=== PATIENT | female | born 1990 | race Caucasian/White ===

== ENCOUNTER → 2023-04-23 | Outpatient (CLI) | payer OTHER | LOC: LAB 09:40 → LAB SHORT 09:40 | DX: N39.0 Urinary tract infection, site not specified (principal) | CPT/HCPCS: 87077; 87086; 87186 ==

== ENCOUNTER → 2023-07-10 | Outpatient (CLI) | payer OTHER ==
[2023-07-11 15:12] LABS: HPV 16 Negative (Negative); HPV 18 Negative (Negative); HPV OTHER HR TYPES Negative (Negative)
== END | disposition home or self-care (01) ==
LOC: LAB SHORT 14:00 → LAB 14:00
PROVIDERS: Obstetrics & Gynecology
DX: Z01.419 Encounter for gynecological examination (general) (routine) without abnormal findings (principal)
CPT/HCPCS: 87624; G0145

== ENCOUNTER 2023-12-18 06:36 | Day surgery (SDC) | payer OTHER ==
[2023-12-18] VITALS (15 sets, daily range): BP systolic 114–135; BP diastolic 71–86
[~2023-12-18] VITALS: Ht 165.1 cm; Wt 74.2 kg
[~2023-12-18 06:36] MED LIST: CeFAZolin Sodium 2,000 MG in NS 100 ML IV SCH; Lactated Ringer's 1,000 ML IV SCH; VENL37.5ER PO
--- NOTE | 2023-12-18 07:20 | NUR ---
Ambulatory in Day Surgery History, Chart, Medications and Allergies reviewed before start of procedure. Pre-Op teaching done. Pt verbalizes understanding.
[2023-12-18] MEDS ORDERED: Lidocaine HCl 2% 20 ML MDV ONE (07:51)
[2023-12-18] MEDS ORDERED: FentaNYL Citrate 50 MCG/ML 5 ML Injection ONE (07:51)
[2023-12-18] MEDS ORDERED: Rocuronium Bromide 10 MG/ML 5ML Injection IV ONE (07:51)
[2023-12-18] MEDS ORDERED: propofoL 20 ML IV ONE (07:51)
[2023-12-18] MEDS ORDERED: Bupivacaine 0.5% HCl 5 MG/ML 30MLVIAL ONE (07:54)
[2023-12-18] MEDS ORDERED: Dexamethasone Sod Phos 10 MG/ML 1ML VIAL ONE (08:19)
[2023-12-18] MEDS ORDERED: Ondansetron HCl 2 MG / ML 2ML Vial ONE (09:09)
[2023-12-18] MEDS ORDERED: Sugammadex Sodium 200 MG/2ML SDV (100 MG/ML) ONE (09:09)
[2023-12-18] MEDS ORDERED: Lactated Ringer's 1,000 ML IV SCH (09:35)
[2023-12-18] MEDS ORDERED: Metoclopramide HCl 5MG / ML 2ML Vial IV PRN (09:35)
[2023-12-18] MEDS ORDERED: HYDROmorphone HCl/Pf 1MG SYR IV PRN (09:35)
[2023-12-18] MEDS ORDERED: Simethicone 80 MG Chew PO PRN (09:40)
[2023-12-18] MEDS ORDERED: DiphenhydrAMINE HCL 25 MG Cap PO PRN (09:40)
[2023-12-18] MEDS ORDERED: Naloxone HCl 0.4MG / ML 1ML Vial IV PRN (09:40)
[2023-12-18] MEDS ORDERED: Ondansetron 4 MG TAB PO PRN (09:40)
[2023-12-18] MEDS ORDERED: Acetaminophen 500 MG Tab PO PRN (09:40)
[2023-12-18] MEDS ORDERED: OxyCODONE HCL 5 MG TAB PO PRN (09:40)
[2023-12-18] MEDS ORDERED: Metoclopramide HCl 10 MG Tab PO PRN (09:45)
[2023-12-18] MEDS ORDERED: Ondansetron HCl 2 MG / ML 2ML Vial IV PRN (09:45)
[2023-12-18] MEDS ORDERED: Ketorolac Tromethamine 30mg Vial IV PRN (09:50)
[2023-12-18] MEDS ORDERED: Ketorolac Tromethamine 30mg Vial ONE (09:57)
[2023-12-18] MEDS ORDERED: HYDROmorphone HCl/Pf 1MG SYR ONE (10:09)
--- NOTE | 2023-12-18 10:47 | NUR ---
ARRIVAL TO SURGICAL UNIT VIA GOURNEY, TRANSFER SLID TO HOSPITAL BED. OPENS EYES BUT THEN FALLS BACK ASLEEP. ASSESSMENT CHARTED. K PAD TO BACK FOR COMFORT. DRINKS OFFERED BUT FALLS ASLEEP. RESP EVEN.
[2023-12-18] MEDS ORDERED: ACET500 PO (14:07)
[2023-12-18] MEDS ORDERED: OXYC5 PO (14:09)
[2023-12-18] MEDS ORDERED: IBUP400 PO (14:09)
--- NOTE | 2023-12-18 15:27 | NUR ---
DISCHARGE PT HAS VOIDED TWICE SINCE ARRIVING TO THE SURGICAL FLOOR. PVR WNL. EATING AND DRINKING W/O N/V. AMBULATING WITHOUT DIFFICULTY. PAIN IS MANAGED WELL WITH PRESCRIBED RX. NO VAGINAL BLEEDING NOTED. ESCORTED OUT VIA WC.
--- NOTE | 2023-12-19 07:54 | NUR ---
12/19/23 0754 Anika Barnes VERIFICATIONS: EDIT CHART.
[2023-12-19] MEDS ORDERED: Venlafaxine HCl 37.5 MG CapCR PO SCH (09:00)
== END 2023-12-18 15:27 | disposition home or self-care (01) ==
LOC: ORSCMMR 06:36 → ORD 08:00 → SURS 10:29 → ORSCMMR 15:27
PROVIDERS: Obstetrics & Gynecology
PROC: 0UT7FZZ Resection of Bilateral Fallopian Tubes, Via Natural or Artificial Opening With Percutaneous Endoscopic Assistance (ICD-10-PCS; principal; 2023-12-18 08:00)
PROC: 0UT9FZZ Resection of Uterus, Via Natural or Artificial Opening With Percutaneous Endoscopic Assistance (ICD-10-PCS; principal; 2023-12-18 08:00)
DX: N80.03 Adenomyosis of the uterus (principal); N92.0 Excessive and frequent menstruation with regular cycle; N94.6 Dysmenorrhea, unspecified; D50.9 Iron deficiency anemia, unspecified; F41.9 Anxiety disorder, unspecified; F32.A Depression, unspecified; K21.9 Gastro-esophageal reflux disease without esophagitis; Z79.899 Other long term (current) drug therapy
CPT/HCPCS: 36415; 86850; 86900; 86901; 88307; A9270; J0690; J1100; J1170; J1885; J2405; J2704; J3010; J7120